=== PATIENT | male | born 1965 | race Caucasian/White ===

== ENCOUNTER 2020-10-31 08:15 | Outpatient (CLI) | payer OTHER, SELFPAY ==
--- NOTE | 2020-10-31 16:57 | WPDPFTINT ---
PFT Procedure Performed PFT Procedure Performed Plethysmography (Lung Vol) Diffusing Cap (DLCO) Flow Vol Loop Spirometry w/o Bronchodil PFT Interpretation This is a pulmonary function test with spirometry, plethysmography and diffusing capacity. The test was performed and results interpreted in accordance with the 2019 and 2005 ATS/ERS Task Force guidelines respectively using the Global Lung Function Initiative-2012 reference equations. Patient demonstrated good effort and cooperation. Reproducibility criteria were met. The quality of the spirometry maneuver was Grade B. Findings: Spirometry: There is decreased maximal expiratory airflow at all lung volumes with a concave expiratory flow tracing. The FVC is 4.23 L, 85% predicted. The FEV1 is 2.10 L, 54% predicted. The FEV1: FVC ratio is 50%. Plethysmography: The total lung capacity is 8.43 L, 118% predicted. The functional residual capacity is 5.27 L, 142% predicted. The residual volume is 4.20 L, 192% predicted. Diffusing capacity: The absolute diffusion capacity is 23.9, 80% predicted. The diffusing capacity corrected for alveolar volume is 3.59, 83% predicted. Impression: There is a moderately severe obstructive abnormality. The increase in residual volume is consistent with air trapping from an obstructive abnormality. Hyperinflation is present is demonstrated by the increase in functional residual capacity and is consistent with an obstructive abnormality. The diffusing capacity is normal. There are no prior studies for comparison
== END 2020-10-31 08:16 | disposition home or self-care (01) ==
PROVIDERS: PCP Family Medicine; Visit Provider Family Medicine
DX: R05 Cough (principal); R94.2 Abnormal results of pulmonary function studies
CPT/HCPCS: 94375; 94726; 94729

== ENCOUNTER 2022-05-25 13:11 | Outpatient (CLI) | payer OTHER, SELFPAY ==
--- NOTE | ~2022-05-25 | CT_ITS ---
EXAMINATION: CT lung screening DATE: 05/25/2022 13:55 INDICATION: Personal history nicotine dependence, current smoker with 60 pack year history TECHNIQUE: Computed tomography (CT) of the chest was performed without intravenous contrast. The dose -length product (DLP) was 447.50 mGy-cm. Automated exposure control and iterative reconstruction tech [employer] were employed. COMPARISON: None FINDINGS: There is mild emphysema. There is an approximately 2.7 x 1.5 cm (average 2.1 cm) nodule in the superior segment of the right lower lobe which tethers the major fissure. There is a 5 mm subpleu ral nodule of the left upper lobe. No pathologically enlarged thoracic lymph nodes are identified. Th e heart size is normal. No pleural effusion or pneumothorax. The liver is diffusely low in attenuatio n when compared with the spleen, consistent with hepatic steatosis. There is mild thoracic spondylosi s. IMPRESSION: 1. Lung-RADS category 4B: Very suspicious. Findings for which additional diagnostic testing and/or ti ssue sampling is recommended. Reviewed, dictated and finalized at location B. E STUD MANAGER IMPRESSION: 1. Lung-RADS category 4B: Very suspicious. Findings for which additional diagno stic testing and/or tissue sampling is recommended.
== END 2022-05-25 13:12 | disposition home or self-care (01) ==
PROVIDERS: PCP Family Medicine; Visit Provider Family Medicine
DX: Z87.891 Personal history of nicotine dependence (principal); R91.8 Other nonspecific abnormal finding of lung field
CPT/HCPCS: 71271

== ENCOUNTER 2022-06-30 00:12 | Outpatient (CLI) | payer OTHER, SELFPAY ==
--- NOTE | 2022-06-29 08:47 | PC.NURSE ---
Pre Radiology instructions Report to the outpatient [facility] at 0900 on date 06/30/22. Procedure Time: 1100. YOU MAY BE MONITORED AT HOSPITAL FOR UP TO 4 HOURS AFTER YOUR PROCEDURE. 1-2 visitors will be allowed to accompany the patient into the hospital. ?The visitor will be instructed to remain with patient at all times or may be asked to leave the building due to restrictions.? We will allow the visitor to come back to the postoperative area when patient is ready.? NO children visitors allowed at this time. You and your visitor will be asked to self-screen and do not enter if you have any COVID symptoms. A mask is OPTIONAL within the hospital. Patients are to have no food or drink 6 hours prior to procedure time Driving will be restricted after the procedure, you must have a person to drive you home. Labs will be drawn in preop area and once reviewed, you will be taken to radiology area for procedure. When the procedure is completed, you will be taken to outpatient where you will be monitored for several hours. You may have one visitor in this area. Other than holding anti-coagulants, patient may take other medication(s) as scheduled. Prior to your appointment date patients are instructed to hold anti-coagulants after discussing with ordering provider to stop. If unable to discontinue anti-coagulants please notify radiologist. ? No aspirin or warfarin (Coumadin) for 7 days prior to the procedure. ? No clopidogrel (Plavix), ticagrelor (Brilinta), prasugrel (Effient) or dabigatran (Pradaxa) for 5 days prior to the procedure. ? No rivaroxaban (Xarelto), apixaban (Eliquis), dipyridamole (Aggrenox or Persantine) or cilostazol (Pletal) for 2 days prior to the procedure. Medications to discontinue per physician: N/A Date to take last dose: N/A Please leave all valuables, including medications, at home the day of procedure. The hospital will not accept responsibility for valuables. Wear comfortable, loose fitting clothing.? Follow any additional instructions given to you from ordering provider. Telephone instructions given to SELIN GOTTLIEB and asked if any additional questions and then verbalized understanding. Patient advised to call scheduling provider office or registration scheduling [phone] if any additional questions.
[2022-06-29 09:02] VITALS: BMI 42.7
[2022-06-30] VITALS (10 sets, daily range): BP systolic 141–184; BP diastolic 77–104; PULSE 58–74; RESP 16–20; TEMP 37.2; O2SAT 97–100; BMI 43.0
--- NOTE | ~2022-06-30 | XR_ITS ---
EXAMINATION: XR chest 1V portable DATE: 06/30/2022 12:04 INDICATION: Right lung nodule status post percutaneous biopsy. TECHNIQUE: A single frontal view of the chest was obtained on 2 radiographs. COMPARISON: Chest single view at 11:11 AM FINDINGS: The chest demonstrates clear lungs without pneumonia, pleural effusion, or pneumothorax. Th e heart size is normal. IMPRESSION: 1. No acute cardiopulmonary disease. Reviewed, dictated and finalized at location A. DEVELOPER ANALYST
--- NOTE | ~2022-06-30 | XR_ITS ---
EXAMINATION: XR chest 1V DATE: 06/30/2022 11:14 INDICATION: Right lung nodule status post percutaneous biopsy. TECHNIQUE: A single frontal view of the chest was obtained. COMPARISON: Chest CT 05/25/2022 FINDINGS: There is no pneumonia, pleural effusion, or pneumothorax. The heart size is normal. IMPRESSION: 1. No acute cardiopulmonary disease. Reviewed, dictated and finalized at location A. HER OPERATOR
--- NOTE | ~2022-06-30 | CT_ITS ---
EXAMINATION: CT biopsy lung w/imaging DATE: 06/30/2022 11:13 INDICATION: Right lung nodule. TECHNIQUE: The procedure including the risks, benefits, and alternatives and possibility of chest tub e placement were discussed with the patient. Risks discussed included infection, hemorrhage, approxim ately 1/3 risk of pneumothorax, approximately 1/10 risk of pneumothorax severe enough to warrant ches t tube placement, and rarely . The patient understood the risks and agreed to proceed. The patie nt was placed prone. The skin overlying the right lung was prepped and draped in sterile fashion. A nesthetic was administered with 1% lidocaine subcutaneously. A 19 gauge outer needle was advanced un luz marina CT guidance to the lesion of interest. A 20 gauge core biopsy needle was then used to obtain 3 co re biopsy specimens. The needle was removed and the entry site was cleaned and dressed. The mA was ad justed according to patient size. Iterative reconstruction technique was employed. The dose-length pr oduct was 160.44 mGy-cm. There were no immediate complications. FINDINGS: CT images demonstrate the outer needle tip adjacent to a 2.2 cm nodule in right lower lobe. IMPRESSION: 1. CT-guided core needle biopsy of a nodule in right lung lower lobe. Reviewed, dictated and finalized at location A. CONSULTANT
--- NOTE | ~2022-06-30 | XR_ITS ---
XR chest 1V portable DATE: 06/30/2022 14:17 INDICATION: Post CT guided percutaneous needle biopsy of right lung nodule TECHNIQUE: Portable upright AP chest on 06/30/2022 at 1415 hours COMPARISON: 06/30/2022 portable AP chest at 1200 hours FINDINGS: Bilateral hyperinflation suggesting COPD. No iatrogenic pneumothorax is noted following ear lier CT-guided percutaneous needle biopsy of right lung nodule today. No pulmonary infiltrate or cons olidation or pleural effusion. Normal heart size. Osteopenia. IMPRESSION: No iatrogenic pneumothorax or other apparent complication following CT-guided percutaneou s needle biopsy of right lung nodule today Reviewed, dictated and finalized at location L. OR CLINICAL DATA COORDINATOR IMPRESSION: No iatrogenic pneumothorax or other apparent complication following CT-guided percutaneous needle biopsy of right lung nodule today
[2022-06-30 09:55] LABS: Prothrombin Time 12.7 Seconds (11.1-14.7)
[2022-06-30 10:06] LABS: Basophils Absolute Auto 0.1 K/mm3 (0.0-0.1); Basophils Percent Auto 0.8 % (0.2-1.2); Eosinophils Absolute Auto 0.3 K/mm3 (0-0.3); Eosinophils Percent Auto 3.2 % (0-4.4); Hematocrit 50.8 % (42.0-52.0); Immature Granulocyte Absolute 0.03 K/mm3 (0.00-0.031); Immature Granulocyte Percent A 0.4 % (0-0.5); Lymphocytes Absolute Auto 2.41 K/mm3 (0.9-3.2); Lymphocytes Percent Auto 28.9 % (18.3-44.2); Mean Corpuscular HGB Conc 33.5 g/dl (32-36); Mean Corpuscular Hemoglobin 35.3 pg (26-34); Mean Corpuscular Volume 105.4 fl (80-100); Mean Platelet Volume 10.2 fl (7.4-10.4); Monocytes Absolute Auto 0.6 K/mm3 (0.1-0.6); Monocytes Percent Auto 7.6 % (2.6-8.5); Neutrophils Absolute Auto 4.9 K/mm3 (1.3-6.7); Neutrophils Percent Auto 59.1 % (45.5-73.1); Platelet Count Result 197 k/mm3 (150-375); Red Blood Count 4.82 M/mm3 (4.6-6.20); Red Cell Distribution Width 13.2 % (11.5-14.5); White Blood Count 8.3 K/mm3 (4.5-10.0)
== END 2022-06-30 14:33 | disposition home or self-care (01) ==
PROVIDERS: Radiology Diagnostic Radiology; PCP Family Medicine; Referring Provider Internal Medicine Pulmonary Disease; Visit Provider Radiology Diagnostic Radiology
PROC: BB24ZZZ Computerized Tomography (CT Scan) of Bilateral Lungs (ICD-10-PCS; CPT 32408; principal; 2022-06-30 11:00)
DX: R91.1 Solitary pulmonary nodule (principal)
CPT/HCPCS: 32408; 36415; 71045; 85025; 85610; 88305; 88313

== ENCOUNTER 2022-09-04 07:54 | Outpatient (CLI) | payer OTHER, SELFPAY ==
--- NOTE | ~2022-09-04 | CT_ITS ---
CT Scan of the Chest without Contrast: Clinical Indication: Lung nodules, recent biopsy Technique: Contiguous sections were acquired throughout the chest without intravenous contrast. Dose reduction technique was used on this scan by utilizing automated exposure control and iterative recon struction technique. The dose-length product (DLP) was 563.99 mGy-cm. COMPARISON: 05/25/2022 Findings: There is no evidence of any significant mediastinal, hilar or axillary lymphadenopathy. The mediastin al soft tissues appear normal. There is no evidence of pleural or pericardial effusion. Stable somewhat irregular/spiculated nodule in the superior segment right lower lobe. Stable peripher al, pleural-based subcentimeter left upper lobe pulmonary nodule. Stable linear scarring at the lingu la. Images through the upper abdomen reveal diffuse fatty infiltration of the liver. Impression: Stable irregular/spiculated superior segment right lower lobe pulmonary nodule. Correlate with prior biopsy results. Stable subcentimeter left upper lobe pulmonary nodule. Reviewed, dictated and finalized at [facility]. Impression: Stable irregular/spiculated superior segment right lower lobe pulmonary nodule. Correlate with prior biopsy results. Stable subcentimeter left upper lobe pulmonary nodule.
== END 2022-09-04 07:55 | disposition home or self-care (01) ==
PROVIDERS: PCP Family Medicine; Visit Provider Internal Medicine Pulmonary Disease
DX: R91.1 Solitary pulmonary nodule (principal)
CPT/HCPCS: 71250

== ENCOUNTER 2024-04-27 09:02 | Outpatient (CLI) | payer OTHER, SELFPAY | END 2024-04-27 09:03 | disposition home or self-care (01) | LOC: ANHPFT 09:03 | PROVIDERS: PCP Family Medicine; Visit Provider Internal Medicine Pulmonary Disease | DX: J44.9 Chronic obstructive pulmonary disease, unspecified (principal); R91.8 Other nonspecific abnormal finding of lung field | CPT/HCPCS: 94060; 94726; 94729 ==

== ENCOUNTER 2024-08-05 13:00 | Outpatient (CLI) | payer OTHER, SELFPAY ==
--- NOTE | ~2024-08-05 | CT_ITS ---
CT Scan of the Chest without Contrast: Clinical Indication: Lung cancer screening, nicotine dependence Technique: Contiguous sections were acquired throughout the chest without intravenous contrast. Dose reduction technique was used on this scan by utilizing automated exposure control and iterative recon struction technique. The dose-length product (DLP) was 481.47 mGy-cm. COMPARISON: 09/04/2022 Findings: There is no evidence of any significant mediastinal, hilar or axillary lymphadenopathy. The mediastin al soft tissues appear normal. There is no evidence of pleural or pericardial effusion. Stable spiculated density in the right lower lobe, likely chronic postinflammatory scarring. Stable f ocal scarring at the lingula. Stable 5 mm subpleural nodule left upper lobe (axial image 52). Mild em physema. Images through the upper abdomen reveal diffuse hepatic steatosis. Impression: Lung RADS 2: Benign appearance. 12 month follow-up screening CT advised. Reviewed, dictated and finalized at [facility]. Impression: Lung RADS 2: Benign appearance. 12 month follow-up screening CT advised.
--- OUTSIDE RECORDS SUMMARY | 2024-08-05 13:05 | XMS_ITS | CONTINUITY OF CARE DOCUMENT ---
Author Name karolina turcios Address Unknown Organization [facility] Address [address] [place] [address] Phone [phone] Care Team Providers Care Silver Wrapper Name Role Phone Kurt JAMA, Anna Unavailable [phone] MICHAEL WHITNEY Unavailable [phone] HOPLENNIECHARBELIE Unavailable [phone] PROBLEMS Condition Status Date Provider Notes Family History of CVA or Stroke: completed - Sherry Osorio MD Family History of Hyperlipidemia: completed - Ho Osorio MD Family History of Hypertension: completed - Us lucian Osorio MD Cardiology examination completed 5 - Ho Osorio MD Obesity active Ho Osorio MD Increased blood pressure completed - Anna Hicks MD Shortness of breath- equivoc al routine stress, Echo - diastolic dysfn , RVSP 44 mm Hg 01/16 active Anna Hicks MD SLEEP APNEA completed - Anna Hicks MD Edema - b/l Venous insuffici ency 01/16 active Anna Hicks MD VENOUS INSUFFICIENCY active Ho Osorio MD Prediabetes active Ho Osorio MD Hyperlipidemia active Ho Osorio MD HTN essential active Ho Osorio MD COPD active Anna Hicks MD JEFF--on cpap active Anna Hicks MD Family hx of heart disease active Anna levy MD ENCOUNTERS Date Type Provider Location Encounter Diag nosis - In-person encounter Office Visit Anna Hicks MD [facility] Shortness of breath- equivocal routine stress, Echo - diastolic dysfn , RVSP 44 mm Hg 01/16Edema - b/l Venous insufficiency 01/16 - In-person encounter Office Visit Anna Hicks MD [facility] Increased blood pressureSLEEP APNEACOPDOSA--on cpapFamily hx of heart disease - In-person encounter Office Visit Ho Osorio MD [facility] HTN essential - In-person encounter Office Visit Ho Osorio MD [facility] - In-person encounter Office Visit Ho Osorio MD [facility] Family History of CVA or Stroke:Family History of Hyperlipidemia:Family History of Hypertension:Cardiology examinationVENOUS INSUFFICIENCYPrediabetesHyperlipidemia - In-person encounter Office Visit Ho Osorio MD [facility] ObesityShortness of breath- equivocal routine stress, Echo - diastolic dysfn , RVSP 44 mm Hg 01/16Edema - b/l Venous insufficiency 01/16 VITAL SIGNS Date Observation Value Provider Body Mass Index (Ratio) 44.21 kg/m2 Rocye Hicks MD blood pressure, diastolic 78 mm[Hg] Spenser San blood pressure, systolic 140 mm[Hg] She valerie San weight E&M 326 [lb_av] Bernadette San pulse rate 95 /min Bernadette San respiratory rate E&M 20 /min Bernadette San oxygen saturation, oximetry 95 % Bernadette San blood pressure, cuff size large Spenser San height E&M 72 [in_i] Bernadette San weight E&M 324 [lb_av] Cristal chang Body Mass Index (Ratio) 43.94 kg/m2 Royce Hicks MD blood pressure, diastolic 98 mm[Hg] Li [facility] blood pressure, systolic 148 mm[Hg] Chiquita [facility]Logic blood pressure, cuff size large Ja rr blood pressure, diastolic 98 mm[Hg] Ja rret blood pressure, systolic 148 mm[Hg] Jar ret pulse rate 83 /min [place] respiratory rate E&M 12 /min [place] oxygen saturation, oximetry 95 % [place] weight E&M 324 [lb_av] [place] y height E&M 72 [in_i] [place] y Body Mass Index (Ratio) 38.92 kg/m2 Jasmin Osorio MD blood pressure, diastolic 80 mm[Hg] Chelle Fishsandro Gonzalez blood pressure, systolic 132 mm[Hg] Melba Petrthierno Gonzalez oxygen saturation, oximetry 98 % Yaz Gonzalez respiratory rate E&M 20 /min Sue Gonzalez pulse rate 77 /min Yaz regalado weight E&M 287 [lb_av] Yaz Jigar [facility] height E&M 72 [in_i] Yaz Kimball [facility] Body Mass Index (Ratio) 40.95 kg/m2 Jasmin Osorio MD blood pressure, diastolic 95 mm[Hg] Cy tamara Cook blood pressure, systolic 155 mm[Hg] Caridad juliana Cook blood pressure, cuff size regular Cy tamara oCok pulse rate 92 /min Miguelina jerry respiratory rate E&M 18 /min Miguelina Cook oxygen saturation, oximetry 94 % Miguelina Cook weight E&M 302 [lb_av] Miguelina jerry height E&M 72 [in_i] Miguelina jerry Body Mass Index (Ratio) 36.89 kg/m2 Jasmin Osorio MD blood pressure, diastolic 70 mm[Hg] Chelle mar [facility] blood pressure, systolic 130 mm[Hg] Melba andrew [facility] oxygen saturation, oximetry 97 % Desiree O'Uli respiratory rate E&M 16 /min Desiree O'[facility]li pulse rate 82 /min Desiree O'[facility] weight E&M 272 [lb_av] Desiree O'Uli height E&M 72 [in_i] Desiree O'Uli Body Mass Index (Ratio) 41.09 kg/m2 Jasmin Osorio MD blood pressure, cuff size large Ke jazmine Evans blood pressure, diastolic 94 mm[Hg] Ke rryesenia Evans blood pressure, systolic 140 mm[Hg] Simran Evans oxygen saturation, oximetry 97 % Nicolette Evans respiratory rate E&M 22 /min Nicolette cullen pulse rate 86 /min Nicolette Saldaña lder weight E&M 303 [lb_av] Nicolette Saldaña lder height E&M 72 [in_i] Nicolette cruz ALLERGIES No Known Drug Allergies RESULTS Date Observation Value Provider Reference Range Interpretation Location prostate specific antigen (PSA) complex 0.1 ng/mL [facility] 0.0-3.6 thyroid stimulating hormone, serum 2.710 u[IU]/mL [facility] 0.450-4.500 bacteria, urine microscopy None seen [facility] None seen/Few cast type, urinalysis Hyaline casts [facility] N/A hyaline casts, urine Present [facility] None seen Abnormal epithelial cells, urine None seen [facility] 0 - 10 RBC, Urine 0-2 /hpf [facility] 0 - 2 WBC urine on microscopy 0-5 /hpf [facility] 0 - 5 urinalysis, microscopic examination See report [facility] nitrate, urine Negative [facility] Negative urobilinogen, urine, semiquantitative (dipstick) 0.2 [facility] 0.2-1.0 bilirubin, urine Negative [facility] Negative hemoglobin, urine, by dipstick Negative [facility] Negative ketones, urine, by test strip Negative [facility] Negative glucose, urine Negative [facility] Negative protein, urine, semiquantitative (dipstick) Negative [facility] Negative/Tra ce leukocyte esterase, urine, by dipstick Negative [facility] Negative appearance, urine Clear [facility] Clear urine color Yellow [facility] Yellow pH, urine, semiquantitative 5.5 [facility] 5.0-7.5 specific gravity, body fluid 1.024 [facility] 1.005-1.030 lipoprotein, beta, serum, point, quantitative, calculated 93 mg/dL [facility] 0-99 very low density lipoproteins 75 mg/dL [facility] 5-40 High HDL cholesterol, serum 35 mg/dL [facility] >39 Low triglyceride, serum, random 374 mg/dL [facility] 0-149 High cholesterol, serum 203 mg/dL [facility] 100-199 High alanine aminotransferase (SGPT), serum 31 1/L [facility] 0-44 aspartate aminotransferase (SGOT), serum 29 1/L [facility] 0-40 alkaline phosphatase, serum 103 1/L [facility] 39-117 bilirubin, serum, total 0.6 mg/dL [facility] 0.0-1.2 albumin/globulin ratio, serum 1.6 [facility] 1.2-2.2 globulin, serum 2.8 [facility] 1.5-4.5 albumin, serum 4.4 g/dL [facility] 3.5-5.5 protein, total, serum 7.2 g/dL [facility] 6.0-8.5 calcium, serum 9.3 mg/dL [facility] 8.7-10.2 carbon dioxide, venous blood 27 mmol/L [facility] 20-29 chloride, serum 101 mmol/L [facility] 96-106 potassium, serum 4.3 mmol/L [facility] 3.5-5.2 sodium, serum 146 mmol/L [facility] 134-144 High urea nitrogen/creatinine ratio, serum 15 [facility] 9-20 eGFR if 79 mL/min/{1.7 3_m2} [facility] >59 eGFR if not 68 mL/min/{1.7 3_m2} [facility] >59 creatinine, serum 1.21 mg/dL [facility] 0.76-1.27 urea nitrogen, blood 18 mg/dL [facility] 6-24 blood glucose, random 112 mg/dL [facility] 65-99 High basophil count, absolute 0.0 x10E3/uL [facility] 0.0-0.2 Eosinophil Absolute Count 0.3 X10E3/UL [facility] 0.0-0.4 monocyte count, blood, automated 0.7 X10E3/UL [facility] 0.1-0.9 lymphocyte count, blood, automated 3.3 X10E3/UL [facility] 0.7-3.1 High Absolute Neutrophils 6.6 X10E3/UL [facility] 1.4-7.0 basophils as percent of blood leukocytes 0 % [facility] Not Estab. eosinophils as percent of blood leukocytes 3 % [facility] Not Estab. monocytes as percent of blood leukocytes 6 % [facility] Not Estab. lymphocytes as percent of blood leukocytes 30 % [facility] Not Estab. neutrophils as percent of blood leukocytes 61 % [facility] Not Estab. platelet count 243 X10E3/UL [facility] 148-701 1227/03/ 26 red blood cell distribution width 13.0 % [facility] 12.3-15.4 mean corpuscular hemoglobin concentration, RBC 34.9 G/DL [facility] 31.5-35.7 mean corpuscular hemoglobin, RBC 33.9 pg [facility] 26.6-33.0 High mean corpuscular volume, RBC 97 fL [facility] 79-97 hematocrit, blood 49.6 % [facility] 37.5-51.0 hemoglobin, blood 17.3 g/dL [facility] 13.0-17.7 erythrocyte (RBC) count 5.11 X10E6/UL [facility] 4.14-5.80 leukocyte count, blood 10.9 X10E3/UL [facility] 3.4-10.8 High hemoglobin A1C, blood, as % of total hemoglobin 6.0 % [facility] 4.8-5.6 High HISTORY OF MEDICATION USE Medication Status Instructions Dates Provider Indications Com ments hydrochlorothiazide 25 mg tablet active Isaiah Ahmedzai metformin 500 mg tablet extended release 24 hr active Isaiah Ahmedzai albuterol sulfate 90 mcg/actuation HFA aerosol inhaler active Isaiah Ahmedzai ergocalciferol (vitamin D2) 1,250 mcg (50,000 unit) capsule active Isaiah Ahmedzai bumetanide 2 mg tablet active Ri anabella Min Stiolto Respimat 2.5-2.5 mcg/actuation mist active Isaiah Ahmedzai Mounjaro 2.5 mg/0.5 mL pen injector active Isaiah Min rosuvastatin 20 mg tablet active Isaiah Min VITAMIN B 12 TABLET completed take 1 tab daily Isaiah Min VITAMIN B 12 TABLET completed take 1 tab daily - Isaiah Min MULTIVITAMINS ORAL CAPSULE completed ONE TAB. DAILY - Isaiah Min ergocalciferol (vitamin D2) 1,250 mcg (50,000 unit) capsule completed one capsule by mouth weekly - Isaiah Min VITAMIN E TABLET completed once a day - Desiree Yoder EQGerardo GLUCOSAMINE CHONDROITIN TABLET completed take one pill a day - Isaiah Min SOCIAL HISTORY Date Observation Value Provider social history E&M S moking History: Destiny yarbrough currently smokes every day. Anna Hicks MD smoking history, tot al pack/day 1pkg cig a day Bernadette San cigarette use yes Bernadette San smoking status Current every day smoker S iliana San social history reviewed E&M revi ewed - no changes required Anna Hicks MD social history reviewed E&M revi ewed - no changes required Isaiah Min social history E&M S moking History: Destiny yarbrough currently smokes every day. Destiny yarbrough has been counseled to quit. Ho Osorio MD social history reviewed E&M revi ewed - no changes required Ho Osorio MD alcohol use, average drinks per day 2 /d Ho Osorio MD alcohol use yes Ho Osorio MD smoking/tobacco cess ation, patient education and counseling yes Yaz Gonzalez number of years as a smoker 30 a Yaz Gonzalez smoking history, tot al pack/day 2 ppd Yaz Gonzalez cigarette use yes Yaz wiley smoking status Current every day smoker Ashish Saba Gonzalez alcohol use, average drinks per day 2 /d Ho Osorio MD alcohol use yes Ho Osorio MD smoking/tobacco cess ation, patient education and counseling yes Ho Osorio MD smoking status Current every day smoker U jacquie Osorio MD social history E&M S moking History: P atient currently smokes every day. P atient has been counseled to quit. Ho Osorio MD social history reviewed E&M revi ewed - no changes required Ho Osorio MD number of years as a smoker 30 a Miguelina Cook smoking history, tot al pack/day 2 ppd Miguelina Cook cigarette use yes Miguelina bates number of grandchildren Ho Osorio MD U jacquie Osorio MD social history E&M S moking History: P atient currently smokes every day. P atient has been counseled to quit. Ho Osorio MD social history reviewed E&M revi ewed - no changes required Ho Osorio MD alcohol use, average drinks per day 2 /d Desiree Yoder smoking/tobacco cess ation, patient education and counseling yes Desiree Yoder alcohol use yes Desiree Yoder number of years as a smoker 30 a Desiree Yoder smoking history, tot al pack/day 2 ppd Desiree Yoder cigarette use yes Desiree Yoder smoking status Current every day smoker Ashish alana Yoder alcohol use, average drinks per day 2 /d Ho Osorio MD alcohol use yes Ho Osorio MD social history E&M S moking History: P atient currently smokes every day. P linnea has been counseled to quit. Ho Osorio MD social history reviewed E&M radha bills - no changes required Ho Osorio MD smoking/tobacco cess ation, patient education and counseling yes Ho Osorio MD number of years as a smoker 30 a Nicolette Evans smoking history, tot al pack/day 2 ppd Nicolette Cristina cigarette use yes Nicolette Andrzej varma smoking status Current every day smoker K darci Cristina FAMILY HISTORY Family Member Condition Mother Family History of Di abetes: Father Family History of Co ronary Artery Disease: Father Family History of Hy pertension: Father Family History of Hy perlipidemia: Father Family History of CV A or Stroke: INSURANCE PROVIDERS Payer name Policy type / Coverage type [place] red libertarian [employer] [place] [employer] [facility] [id number] ADVANCE DIRECTIVES Name Date DISCUSSED - NO DECISION MADE TREATMENT PLAN Date Name Performer [id number],Anna Glaser MD [id number],Anna Glaser MD [id number],Anna Glaser MD [id number],Anna Dozier MD [id number],Anna Santana MD [id number],Anna Glaser MD [id number],Anna Santana MD [id number],Anna Santana MD [id number],SIsaiah i [id number],Isaiah Glaser i [id number],SIsaiah i [id number],S, Isaiah Ahmedza i [id number],S, Isaiah Ahmedza i [id number],S, Isaiah Ahmedza i [id number],S, Isaiah Ahmedza i [id number],S, Isaiah Ahmedza i Cardiology Anna Hicks MD Cardiology Anna Hicks MD Cardiology Anna Hicks MD Cardiology Anna Hicks MD Cardiology Anna Hicks MD Cardiology Anna Hicks MD Cardiology Anna Hicks MD Cardiology Anna Hicks MD Cardiology Isaiah Ahmedzai Cardiology Isaiah Ahmedzai Cardiology Isaiah Ahmedzai Cardiology Isaiah Ahmedzai Cardiology Isaiah Ahmedzai Cardiology Isaiah Ahmedzai Cardiology Isaiah Ahmedzai Cardiology Isaiah Ahmedzai Cardiology:Improved with weight loss B P today: 132/80 P rior BP: 155/95 (11/06/2019) Labs Reviewed: C reat: 1.21 (07/19/2018) C hol: 203 (07/19/2018) HDL: 35 (07/19/2018) Ho Osorio MD Cardiology:Patient h as LE edema b/l secondary to venous reflux R worse than L. He has been wearing compression faithfully. Will not proceed with vein closure at this time as his veins as he has no wounds and is not in pain at this time. Swelling has improved with weight loss and compression. Advised him to continue to stay this course, will f/u in 6 months provided he doesn't have any further issues. Ho Osorio MD Cardiology follow up Ho still MD Cardiology follow up :Patient has LE edema b/l secondary to venous refllux R worse than L. I have advised him to obtain compression socks and we will repeat his standing venous dopppler. I will f/u with the patient in two months Ho Osorio MD Cardiology follow up Ho still MD Cardiology follow up :I have advised the patient to go back on Keto diet. Ho Osorio MD Cardiology Ho Osorio MD Cardiology:to receive CPAP this week Ho Osorio MD Cardiology:down 30lb s on keto diet. planning to continue with weight loss Ho Osorio MD Cardiology Ho Osorio MD Cardiology:will start compressio n socks Ho Osorio MD Cardiology New Patie nt :will check standing venous doppler. Ho Osorio MD Cardiology New Patient :weight l oss Ho Osorio MD Cardiology New Patient :will mon itor Ho Osorio MD Cardiology New Patie nt :Probably al least partly due to the weight w ill check an echo and pft's Ho Osorio MD Cardiology New Patie nt :has poor sleep and wakes up tired with poor memory with daytime sleepiness h as large neck Ho Osorio MD Date Name PROTHROMBIN TIME WIT H INR LIPID PANEL CBC (INCLUDES DIFF/P LT) BASIC METABOLIC PANE L W/EGFR CT, Coronary Calcium Score Venous Doppler Bilat eral LE - Reflux Complete Echo Stress Routine Venous Doppler Bilat eral LE - Reflux URINALYSIS, COMPLETE W/REFLEX TO CULTURE LIPID PANEL CBC (INCLUDES DIFF/P LT) COMPREHENSIVE METABO LIC PANEL, W/EGFR HEMOGLOBIN A1c PSA, TOTAL Vitamin D, 25-Hydrox y TSH, 3RD GENERATION W/REFLEX TO FT4 Sleep Study - split night CT, Coronary Calcium Score Venous Doppler Kendell sage LE - Reflux Complete Echo HISTORY OF PROCEDURES Procedure Date Procedure Name Provider Procedure Notes S tatus EKG Anna Hicks MD completed EKG Ho Osorio MD completed CT- Coronary CA score Ho Osorio MD completed EKG Ho Osorio MD completed
--- OUTSIDE RECORDS SUMMARY | 2024-08-05 13:05 | XMS_ITS | Data Portability ---
Author Organization [facility], Main Office Address [address] [place] [address] Assessment Encounter Date Assessment Date Assessment LastModified by Organization Details LastModified Time 06/14/2024 06/14/2024 Patient was not seen in office. [email or web address] Not available 06/14/2024 12:03:13 Plan of Treatment Reminders Order Date Submit Date Provider Last Modified By Organization Details Last Modified Time Details Appointments Follow Up 30 2024 08:30A Cheko Napoles NP Not available Not available Not available Lab lipid panel, serum 2024 025 [facility] (Lab), [address] [place], [address], 07/04/2024 14:11:31 hepatic function panel, serum 2024 025 [facility] (Lab), [address] [place], [address], 07/04/2024 14:11:30 vitamin B12 + folate, serum or blood 2024 025 [facility] (Lab), [address] [place], [address], 07/04/2024 15:11:11 vitamin D, 25-hydrox y, total, serum 2024 025 [facility] (Lab), [address] [place], [address], 07/04/2024 14:11:35 CBC w/ auto diff 2024 025 [facility] (Lab), [address] [facility] [place], [address], 07/04/2024 14:11:27 glycohemo globin, total, blood 2024 025 [facility] (Lab), [address] [place], [address], 07/04/2024 15:11:11 CMP, serum or plasma 2024 025 [facility] (Lab), [address] [place], [address], 07/04/2024 14:11:29 testoster one, free + total, serum 2024 025 [facility] (Lab), [address] [place], [address], 07/04/2024 14:11:33 vitamin D, 25-hydrox y, total, serum 2023 024 [facility] (Lab), [address] [place], [address], 01/21/2024 11:37:00 glycohemo globin, total, blood [email or web address] [place] [address] (Lab), [address] [place], [address], 01/27/2024 07:49:36 BMP, serum or plasma 2023 024 [facility] (Lab), [address] [place], [address], 01/21/2024 11:36:59 CBC 2023 024 [facility] (Lab), [address] [place], [address], 01/21/2024 11:36:58 vitamin B12 + folate, serum or blood 2023 024 [facility] (Lab), [address], [place], [address], 01/21/2024 11:36:59 Referral None recorded. Procedures None recorded. Surgeries None recorded. Imaging LDCT, chest, for lung cancer screening - Please call patient to schedule. 2024 025 [email or web address] [facility], [address] [facility], [place] [address], [place], [address], 06/08/2024 14:25:07 Medication Orders sertralin e 100 mg tablet 2024 025 [id number], [address], [place], [address], 06/08/2024 09:52:31 Ozempic 1 mg/dose (4 mg/3 mL) subcutane ous pen injector 2024 025 [facility]acy #[id number], [address], [place], [address], 06/08/2024 09:52:30 albuterol sulfate HFA 90 mcg/actua tion aerosol inhaler 2024 025 [id number], [address], [place], [address], 06/08/2024 09:52:28 prednison e 20 mg tablet 2024 025 [id number], [address], [place], [address], 06/08/2024 09:52:29 Ozempic 0.25 mg or 0.5 mg (2 mg/3 mL) subcutane ous pen injector 2023 024 [email or web address] [facility]/Pharmacy #[id number], [address] [place], [address], 06/08/2024 09:32:03 sertralin e 50 mg tablet 2023 024 FLIP [facility]/Pharmacy #[id number], [address], [place], [address], 02/18/2024 08:33:00 Zepbound 2.5 mg/0.5 mL subcutane ous pen injector 2023 024 [email or web address] [facility]/Pharmacy #[id number], [address], [place], [address], 02/18/2024 08:32:47 sertralin e 25 mg tablet 2023 024 [email or web address] [facility]/Pharmacy #[id number], [address], [place], [address], 06/08/2024 09:29:55 Patient TargetsNo targets recorded. Patient InstructionsNo instructions recorded. Reason for Referral None Reported. Results Created Date Observation Date Name Description Value Unit Range Abnormal Flag Note LastModifiedBy Organization Detail LastModifiedTime 01/20/2001/21/2024 CBC, PLATE LET, NO DIFFE RENTI AL WBC 7.7 x10e3 /uL 3.4-10 .8 normal Not Available [facility] ([facility]) [address] [place], [address], 01/21/2024 11:36:58 01/20/2001/21/2024 CBC, PLATE LET, NO DIFFE RENTI AL RBC 4.76 x10e6 /uL 4.14-5 .80 normal Not Available [facility] ([facility]) [address] [place], [address], 01/21/2024 11:36:58 01/20/2001/21/2024 CBC, PLATE LET, NO DIFFE RENTI AL hemoglobin 16.5 g/dL 13.0-1 7.7 normal Not Available [facility] ([facility]) [address] [facility], [place], [address], 01/21/2024 11:36:58 01/20/2001/21/2024 CBC, PLATE LET, NO DIFFE RENTI AL hematocrit 48.2 % 37.5-5 1.0 normal Not Available [facility] ([facility]) [address] [place], [address], 01/21/2024 11:36:58 01/20/2001/21/2024 CBC, PLATE LET, NO DIFFE RENTI AL MCV 101 fL 79-97 above high normal Not Available [facility] ([facility]) [address] [facility], [place], [address], 01/21/2024 11:36:58 01/20/2001/21/2024 CBC, PLATE LET, NO DIFFE RENTI AL MCH 34.7 pg 26.6-3 3.0 above high normal Not Available [facility] ([facility]) [address] [facility], [place], [address], 01/21/2024 11:36:58 01/20/2001/21/2024 CBC, PLATE LET, NO DIFFE RENTI AL MCHC 34.2 g/dL 31.5-3 5.7 normal Not Available [facility] ([facility]) [address] [place], [address], 01/21/2024 11:36:58 01/20/2001/21/2024 CBC, PLATE LET, NO DIFFE RENTI AL RDW 12.0 % 11.6-1 5.4 Not Available [facility] ([facility]) [address] [place], [address], 01/21/2024 11:36:58 01/20/2001/21/2024 CBC, PLATE LET, NO DIFFE RENTI AL platelets 149 x10e3 /uL 150-45 0 below low normal Not Available [facility] ([facility]) [address] [facility], [place], [address], 01/21/2024 11:36:58 01/20/20 24 01/21/2024 CBC, PLATE LET, NO DIFFE RENTI AL NRBC WRAPPER LEAF INSPECTOR Not Available [facility] ([facility]) [address] [facility], [place], [address], 01/21/2024 11:36:58 01/20/20 24 01/21/2024 BASIC METAB OLIC PANEL (8) glucose 148 mg/dL 70-99 above high normal Not Available [facility] ([facility]) [address] [facility], [place], [address], 01/21/2024 11:36:59 01/20/20 24 01/21/2024 BASIC METAB OLIC PANEL (8) BUN 15 mg/dL 6-24 normal Not Available [facility] ([facility]) [address] [facility], [place], [address], 01/21/2024 11:36:59 01/20/20 24 01/21/2024 BASIC METAB OLIC PANEL (8) creatinine 1.04 mg/dL 0.76-1 .27 normal Not Available [facility] ([facility]) [address] [facility], [place], [address], 01/21/2024 11:36:59 01/20/20 24 01/21/2024 BASIC METAB OLIC PANEL (8) eGFR 83 mL/mi n/1.7 3 >59 normal Not Available [facility] ([facility]) [address] [facility], [place], [address], 01/21/2024 11:36:59 01/20/20 24 01/21/2024 BASIC METAB OLIC PANEL (8) BUN/creatini ne ratio 14 9-20 normal Not Available [facility] ([facility]) [address] [place], [address], 01/21/2024 11:36:59 01/20/20 24 01/21/2024 BASIC METAB OLIC PANEL (8) sodium 141 mmol/ L 134-14 4 normal Not Available [facility] ([facility]) [address] [facility] [place], [address], 01/21/2024 11:36:59 01/20/20 24 01/21/2024 BASIC METAB OLIC PANEL (8) potassium 4.9 mmol/ L 3.5-5. 2 normal Not Available [facility] ([facility]) [address] [facility] [place], [address], 01/21/2024 11:36:59 01/20/20 24 01/21/2024 BASIC METAB OLIC PANEL (8) chloride 104 mmol/ L 96-106 normal Not Available [facility] ([facility]) [address] [facility] [place], [address], 01/21/2024 11:36:59 01/20/20 24 01/21/2024 BASIC METAB OLIC PANEL (8) carbon dioxide, total 24 mmol/ L 20-29 normal Not Available [facility] ([facility]) [address] [facility] [place], [address], 01/21/2024 11:36:59 01/20/20 24 01/21/2024 BASIC METAB OLIC PANEL (8) calcium 9.1 mg/dL 8.7-10 .2 normal Not Available [facility] ([facility]) [address] [place], [address], 01/21/2024 11:36:59 01/20/20 24 01/21/2024 VITAM IN B12 AND FOLAT E vitamin B12 390 pg/mL 232-12 45 normal Not Available [facility] ([facility]) [address] [facility] [place], [address], 01/21/2024 11:36:59 01/20/20 24 01/21/2024 VITAM IN B12 AND FOLAT E folate (folic acid), serum 8.6 NG/mL >3.0 normal A serum folat e rosalio ntrat ion of less than 3.1 ng/mL is consi dered to repre sent clini [place] defic iency . Not Available [facility] ([facility]) [address] [facility], [place], [address], 01/21/2024 11:36:59 01/20/20 24 01/21/2024 HEMOG LOBIN A1C hemoglobin A1C 7.0 % 4.8-5. 6 above high normal Predi abete s: 5.7 - 6.4 Diabe spike: >6.4 Glyce suzanne contr ol for adult s with diabe spike: <7.0 Not Available [facility] ([facility]) [address] [facility], [place], [address], 01/21/2024 11:37:00 01/20/20 24 01/21/2024 VITAM IN D, 25-HY DROXY vitamin D, 25-hydroxy 28.3 NG/mL 30.0-1 00.0 below low normal Vitam in D defic iency has been defin ed by the Insti tute of Medic ine and an Endoc rine Socie ty pract ice guide line as a level of serum 25-OH vitam in D less than 20 ng/mL (1,2) . The Endoc rine Socie ty went on to [facility] er defin e vitam in D insuf ficie ncy as a level betwe en 21 and 29 ng/mL (2). 1. IOM (Inst itute of Medic ine). 2009. Dieta ry refer ence intshakeel es for calci um and D. Brenda gautam DC: The [facility] Press . 2. Bay batista MF, Vonnie ey [place], Roxy off-F errar i HURTADO, et al. Evalu ation , treat ment, and preve ntion of vitam in D defic iency : an Endoc rine Socie ty clini [place] pract ice guide line. JCEM. 2010; 96(7) :1911 -30. Not Available [facility] ([facility]) [address] [facility], [place], [address], 01/21/2024 11:37:00 06/28/19 25 06/28/2024 CBC WITH DIFFE RENTI AL/PL ATELE T WBC 8.2 x10e3 /uL 3.4-10 .8 normal Not Available [facility] ([facility]) [address] [place], [address], 07/04/2024 14:11:27 06/28/19 25 06/28/2024 CBC WITH DIFFE RENTI AL/PL ATELE T RBC 4.92 x10e6 /uL 4.14-5 .80 normal Not Available [facility] ([facility]) [address] [place], [address], 07/04/2024 14:11:27 06/28/19 25 06/28/2024 CBC WITH DIFFE RENTI AL/PL ATELE T hemoglobin 17.5 g/dL 13.0-1 7.7 normal Not Available [facility] ([facility]) [address] [place], [address], 07/04/2024 14:11:27 06/28/19 25 06/28/2024 CBC WITH DIFFE RENTI AL/PL ATELE T hematocrit 49.5 % 37.5-5 1.0 normal Not Available [facility] ([facility]) [address] [place], [address], 07/04/2024 14:11:27 06/28/19 25 06/28/2024 CBC WITH DIFFE RENTI AL/PL ATELE T MCV 101 fL 79-97 above high normal Not Available [facility] ([facility]) [address] [place], [address], 07/04/2024 14:11:27 06/28/19 25 06/28/2024 CBC WITH DIFFE RENTI AL/PL ATELE T MCH 35.6 pg 26.6-3 3.0 above high normal Not Available [facility] ([facility]) [address] [place], [address], 07/04/2024 14:11:27 06/28/19 25 06/28/2024 CBC WITH DIFFE RENTI AL/PL ATELE T MCHC 35.4 g/dL 31.5-3 5.7 normal Not Available [facility] ([facility]) [address] [place], [address], 07/04/2024 14:11:27 06/28/19 25 06/28/2024 CBC WITH DIFFE RENTI AL/PL ATELE T RDW 11.9 % 11.6-1 5.4 Not Available [facility] ([facility]) [address] [facility], [place], [address], 07/04/2024 14:11:27 06/28/19 25 06/28/2024 CBC WITH DIFFE RENTI AL/PL ATELE T platelets 206 x10e3 /uL 150-45 0 normal Not Available [facility] ([facility]) [address] [facility], [place], [address], 07/04/2024 14:11:27 06/28/19 25 06/28/2024 CBC WITH DIFFE RENTI AL/PL ATELE T neutrophils 52 % not estab. normal Not Available [facility] ([facility]) [address] [facility], [place], [address], 07/04/2024 14:11:27 06/28/19 25 06/28/2024 CBC WITH DIFFE RENTI AL/PL ATELE T lymphs 38 % not estab. normal Not Available [facility] ([facility]) [address] [place], [address], 07/04/2024 14:11:27 06/28/19 25 06/28/2024 CBC WITH DIFFE RENTI AL/PL ATELE T monocytes 7 % not estab. normal Not Available [facility] ([facility]) [address] [place], [address], 07/04/2024 14:11:27 06/28/19 25 06/28/2024 CBC WITH DIFFE RENTI AL/PL ATELE T eos 2 % not estab. normal Not Available [facility] ([facility]) [address] [place], [address], 07/04/2024 14:11:27 06/28/19 25 06/28/2024 CBC WITH DIFFE RENTI AL/PL ATELE T basos 1 % not estab. normal Not Available [facility] ([facility]) [address] [place], [address], 07/04/2024 14:11:27 06/28/19 25 06/28/2024 CBC WITH DIFFE RENTI AL/PL ATELE T immature cells WRAPPER LEAF INSPECTOR Not Available [facility] ([facility]) [address] [place], [address], 07/04/2024 14:11:27 06/28/19 25 06/28/2024 CBC WITH DIFFE RENTI AL/PL ATELE T neutrophils (absolute) 4.3 x10e3 /uL 1.4-7. 0 normal Not Available [facility] ([facility]) [address] [place], [address], 07/04/2024 14:11:27 06/28/19 25 06/28/2024 CBC WITH DIFFE RENTI AL/PL ATELE T lymphs (absolute) 3.2 x10e3 /uL 0.7-3. 1 above high normal Not Available [facility] ([facility]) [address] [place], [address], 07/04/2024 14:11:27 06/28/19 25 06/28/2024 CBC WITH DIFFE RENTI AL/PL ATELE T monocytes(ab solute) 0.5 x10e3 /uL 0.1-0. 9 normal Not Available [facility] ([facility]) [address] [place], [address], 07/04/2024 14:11:27 06/28/19 25 06/28/2024 CBC WITH DIFFE RENTI AL/PL ATELE T eos (absolute) 0.1 x10e3 /uL 0.0-0. 4 normal Not Available [facility] ([facility]) [address] [facility], [place], [address], 07/04/2024 14:11:27 06/28/19 25 06/28/2024 CBC WITH DIFFE RENTI AL/PL ATELE T baso (absolute) 0.1 x10e3 /uL 0.0-0. 2 normal Not Available [facility] ([facility]) [address] [facility], [place], [address], 07/04/2024 14:11:27 06/28/19 25 06/28/2024 CBC WITH DIFFE RENTI AL/PL ATELE T immature granulocytes 0 % not estab. Not Available [facility] ([facility]) [address] [facility], [place], [address], 07/04/2024 14:11:27 06/28/19 25 06/28/2024 CBC WITH DIFFE RENTI AL/PL ATELE T immature grans (abs) 0.0 x10e3 /uL 0.0-0. 1 Not Available [facility] ([facility]) [address] [facility], [place], [address], 07/04/2024 14:11:27 06/28/19 25 06/28/2024 CBC WITH DIFFE RENTI AL/PL ATELE T NRBC WRAPPER LEAF INSPECTOR Not Available [facility] ([facility]) [address] [facility], [place], [address], 07/04/2024 14:11:27 06/28/19 25 06/28/2024 CBC WITH DIFFE RENTI AL/PL ATELE T hematology comments: WRAPPER LEAF INSPECTOR Not Available [facility] ([facility]) [address] [facility], [place], [address], 07/04/2024 14:11:27 06/28/19 25 06/28/2024 COMP. METAB OLIC PANEL (14) glucose 113 mg/dL 70-99 above high normal Not Available [facility] ([facility]) [address] [facility], [place], [address], 07/04/2024 14:11:29 06/28/19 25 06/28/2024 COMP. METAB OLIC PANEL (14) BUN 13 mg/dL 6-24 normal Not Available [facility] ([facility]) [address] [facility], [place], [address], 07/04/2024 14:11:29 06/28/19 25 06/28/2024 COMP. METAB OLIC PANEL (14) creatinine 0.96 mg/dL 0.76-1 .27 normal Not Available [facility] ([facility]) [address] [place], [address], 07/04/2024 14:11:29 06/28/19 25 06/28/2024 COMP. METAB OLIC PANEL (14) eGFR 91 mL/mi n/1.7 3 >59 normal Not Available [facility] ([facility]) [address] [place], [address], 07/04/2024 14:11:29 06/28/19 25 06/28/2024 COMP. METAB OLIC PANEL (14) BUN/creatini ne ratio 14 9-20 normal Not Available [facility] ([facility]) [address] [place], [address], 07/04/2024 14:11:29 06/28/19 25 06/28/2024 COMP. METAB OLIC PANEL (14) sodium 138 mmol/ L 134-14 4 normal Not Available [facility] ([facility]) [address] [place], [address], 07/04/2024 14:11:29 06/28/19 25 06/28/2024 COMP. METAB OLIC PANEL (14) potassium 4.7 mmol/ L 3.5-5. 2 normal Not Available [facility] ([facility]) [address] [facility] [place], [address], 07/04/2024 14:11:29 06/28/19 25 06/28/2024 COMP. METAB OLIC PANEL (14) chloride 103 mmol/ L 96-106 normal Not Available [facility] ([facility]) [address] [facility] [place], [address], 07/04/2024 14:11:29 06/28/19 25 06/28/2024 COMP. METAB OLIC PANEL (14) carbon dioxide, total 23 mmol/ L 20-29 normal Not Available [facility] ([facility]) [address] [facility] [place], [address], 07/04/2024 14:11:29 06/28/19 25 06/28/2024 COMP. METAB OLIC PANEL (14) calcium 8.6 mg/dL 8.7-10 .2 below low normal Not Available [facility] ([facility]) [address] [facility] [place], [address], 07/04/2024 14:11:29 06/28/19 25 06/28/2024 COMP. METAB OLIC PANEL (14) protein, total 6.8 g/dL 6.0-8. 5 normal Not Available [facility] ([facility]) [address] [facility] [place], [address], 07/04/2024 14:11:29 06/28/19 25 06/28/2024 COMP. METAB OLIC PANEL (14) albumin 4.2 g/dL 3.8-4. 9 normal Not Available [facility] ([facility]) [address] [facility] [place], [address], 07/04/2024 14:11:29 06/28/19 25 06/28/2024 COMP. METAB OLIC PANEL (14) globulin, total 2.6 g/dL 1.5-4. 5 Not Available [facility] ([facility]) [address] [facility] [place], [address], 07/04/2024 14:11:29 06/28/19 25 06/28/2024 COMP. METAB OLIC PANEL (14) bilirubin, total 0.4 mg/dL 0.0-1. 2 normal Not Available [facility] ([facility]) [address] [facility] [place], [address], 07/04/2024 14:11:29 06/28/19 25 06/28/2024 COMP. METAB OLIC PANEL (14) alkaline phosphatase 116 IU/L 44-121 normal Not Available [facility] ([facility]) [address] [facility], [place], [address], 07/04/2024 14:11:29 06/28/19 25 06/28/2024 COMP. METAB OLIC PANEL (14) AST (SGOT) 40 IU/L 0-40 normal Not Available [facility] ([facility]) [address] [facility] [place], [address], 07/04/2024 14:11:29 06/28/19 25 06/28/2024 COMP. METAB OLIC PANEL (14) ALT (SGPT) 49 IU/L 0-44 above high normal Not Available [facility] ([facility]) [address] [facility] [place], [address], 07/04/2024 14:11:29 06/28/19 25 06/28/2024 HEPAT IC FUNCT ION PANEL (7) bilirubin, direct 0.18 mg/dL 0.00-0 .40 normal Not Available [facility] ([facility]) [address] [facility] [place], [address], 07/04/2024 14:11:30 06/28/19 25 06/28/2024 LIPID PANEL cholesterol, total 180 mg/dL 100-19 9 normal Not Available [facility] ([facility]) [address] [facility] [place], [address], 07/04/2024 14:11:31 06/28/19 25 06/28/2024 LIPID PANEL triglyceride s 204 mg/dL 0-149 above high normal Not Available [facility] ([facility]) [address] [facility] [place], [address], 07/04/2024 14:11:31 06/28/19 25 06/28/2024 LIPID PANEL HDL cholesterol 33 mg/dL >39 below low normal Not Available [facility] ([facility]) [address] [facility] [place], [address], 07/04/2024 14:11:31 06/28/19 25 06/28/2024 LIPID PANEL VLDL cholesterol [place] 36 mg/dL 5-40 Not Available [facility] ([facility]) [address] [facility] [place], [address], 07/04/2024 14:11:31 06/28/19 25 06/28/2024 LIPID PANEL LDL chol calc ([facility]) 111 mg/dL 0-99 above high normal Not Available [facility] ([facility]) [address] [facility] [place], [address], 07/04/2024 14:11:31 06/28/19 25 06/28/2024 LIPID PANEL LDL calc comment: WRAPPER LEAF INSPECTOR Not Available [facility] ([facility]) [address] [facility] [place], [address], 07/04/2024 14:11:31 06/28/19 25 06/28/2024 VITAM IN B12 AND FOLAT E vitamin B12 484 pg/mL 232-12 45 normal Not Available [facility] ([facility]) [address] [facility] [place], [address], 07/04/2024 14:11:33 06/28/19 25 06/28/2024 VITAM IN B12 AND FOLAT E folate (folic acid), serum 8.3 NG/mL >3.0 normal A serum folat e rosalio ntrat ion of less than 3.1 ng/mL is consi dered to repre sent clini [place] defic iency . Not Available [facility] ([facility]) [address] [facility], [place], [address], 07/04/2024 14:11:33 06/28/19 25 07/01/2024 TESTO STERO NE, FREE+ TOTAL LC/MS testosterone , total, lc/MS 182.4 NG/dL 264.0- 916.0 below low normal This [facility] LC/MS -MS metho d is curre ntly certi fied by the [facility] Hormo ne Stand ardiz ation Progr am (HoSt ). Adult male refer ence inter vidal is based on a popul ation of healt hy nonob [place] males (BMI <30) betwe en 19 and 39 years old. Yany suarez, et.al . JCEM 2017, 102;1 161-1 173. PMID: 54114 103. Not Available [facility] ([facility]) [address] [facility], [place], [address], 07/04/2024 14:11:33 06/28/19 25 07/04/2024 TESTO STERO NE, FREE+ TOTAL LC/MS free testosterone (direct) 0.9 pg/mL 7.2-24 .0 below low normal Not Available [facility] ([facility]) [address] [facility], [place], [address], 07/04/2024 14:11:33 06/28/19 25 06/28/2024 HEMOG LOBIN A1C hemoglobin A1C 6.6 % 4.8-5. 6 above high normal Predi abete s: 5.7 - 6.4 Diabe spike: >6.4 Glyce suzanne contr ol for adult s with diabe spike: <7.0 Not Available [facility] ([facility]) [address] [facility], [place], [address], 07/04/2024 14:11:34 06/28/19 25 06/28/2024 VITAM IN D, 25-HY DROXY vitamin D, 25-hydroxy 25.7 NG/mL 30.0-1 00.0 below low normal Vitam in D defic iency has been defin ed by the Insti tute of Medic ine and an Endoc rine Socie ty pract ice guide line as a level of serum 25-OH vitam in D less than 20 ng/mL (1,2) . The Endoc rine Socie ty went on to furth er defin e vitam in D insuf ficie ncy as a level betwe en 21 and 29 ng/mL (2). 1. IOM (Inst itute of Medic ine). 2010. Alvaro ry refer neoe juan f es for calci um and D. Brenda gautam [place]: [facility] . 2. Bay batista [place], Vonnie doss [place], Roxy off-F errar i [place], et al. Evalu ation , treat ment, and preve ntion of vitam in D defic iency : an Endoc rine Socie ty clini [place] pract ice guide line. JCEM. 2010; 96(7) :1911 -30. Not Available [facility] ([facility]) [address] [facility], [place], [address], 07/04/2024 14:11:35 05/29/19 25 04/27/2024 compl ete PFT w/ post [facility] hodil ator jorge luis metry * No observ ation record ed. [facility] (Pulmonary) [address], [place], [address], 05/29/2024 15:13:20 Result Notes None recorded. Problems Name Problem SNOMED Code Status Onset Date Resolution Date Notes Provider Name and Address Organization Details Recorded Time Mixed anxiety and depressive disorder 128596102 Active Not Available [facility] 3 22:19:11 Vitamin D deficiency 74201557 Active Not Available [facility] 3 22:19:11 History of polyp of colon 249822389 Active Not Available [facility] 3 22:19:11 Hyperlipidemi a 04851266 Active Not Available [facility] 3 22:19:11 Essential hypertension 84365599 Active Not Available [facility] 3 22:19:11 Sleep apnea 34727746 Active wears cpap Not Available [facility] 3 22:19:11 Solitary nodule of lung 986529162 Active 2022 Not Available [facility] 3 22:19:11 Mild chronic obstructive pulmonary disease 075389891 Active 2022 Not Available [facility] 3 22:19:11 Smoker 17263286 Active 2022 Not Available [facility] 3 22:19:11 Prediabetes 151839484 Active 2022 Not Available [facility] 3 22:19:11 Nodule of lung 713502261 Active 2022 Not Available [facility] 3 22:19:11 Nicotine dependence 22298304 Active 2022 Not Available [facility] 3 22:19:11 Obesity 635241856 Active 2022 Not Available [facility] 3 22:19:11 Type 2 diabetes mellitus without complication 574811543 Active 2022 Not Available [facility] 3 22:19:11 Testosterone level below reference range 495952210 Active 2022 ALMA Riggs, [place] [facility] [employer] 3 10:37:30 Vitamin B12 deficiency (non anemic) 96401688 Active 2022 ROSA Chacon [address], [address], [place], [address] , [facility] [employer] [facility] 3 10:53:13 Cobalamin deficiency 180864630 Active 2022 ALMA Riggs, [facility] [employer] [employer] [facility] 3 10:59:31 Obstructive sleep apnea syndrome 82672131 Active 2023 Guanako Anderson MD [address], [address], [place], [address] , [place] [facility] 4 10:21:00 Moderate cigarette smoker (10-19 cigs/day) 371244311 Active 2024 CARMEN Whitten-Nae [address] [facility], [facility] [address], [place], [address] , [place] [facility] 5 11:23:31 Notes:Medical History: Depre ssion/Anxiety Eosinophils 140/uL IgE 63 IU/mL Hypogammaglobulinemia (IgG2) AAT [facility] 176 mg% Nicotine use Mild ACO [facility] superior segment nodule Erythrocytosis Obesity with [facility] on CPAP c/o [facility] Hypertension Mixed hyperlipidemia Prediabetes Transaminitis Hepatic steatosis Vit D insufficiency Thoracic spondylosis Procedure History: Left foot fracture pins placement 2010 Colonoscopy with polypectomy 2018 Occupational History: [employer] Problem Notes None recorded. Procedures Surgical History Date Name Laterality Status Provider Name and Address Organization Details Recorded Time colonoscopy completed Not Available [facility] 06/24/2022 05:53:09 Orthopedic Procedure completed Not Available [facility] 06/24/2022 05:53:09 Imaging Results Imaging Date Name Status LastModified by Organization Details LastModified Time 04/27/2024 complete PFT w/ post bronchodilator spirometry* completed [facility] (Pulmonary) [address], [place], [address], 05/29/2024 15:13:20 Procedure Notes None recorded. Medical Equipment None Reported. Allergies No known drug allergies Medications Name Sig Start Date Stop Date Status Note LastModified by Organization Details LastModified Time neomycin- polymyxin -hydrocor t 3.5 mg/mL-10, 000 unit/mL-1 % ear solution 04/26 completed Not Available Not Available Not Available bumetanid e 2 mg tablet TAKE 1 TABLET BY MOUTH EVERY DAY active Not Available Not Available No t Available ibuprofen 800 mg tablet Take 1 tablet 3 times a day by oral route as needed for 30 days. 11/12 completed Not Available Not Available Not Available prednison e 20 mg tablet TAKE 2 TABLETS BY MOUTH EVERY DAY active Not Available Not Available No t Available sertralin e 100 mg tablet Take 1 tablet every day by oral route. 2024 active Not Available Not Available Not Avai lable simvastat in 10 mg tablet Take 1 tablet every day by oral route for 30 days. 11/06 completed Not Available Not Available Not Available Tamiflu 75 mg capsule 11/06 completed Not Available Not Available Not Available tramadol 50 mg tablet 06/03 completed Not Available Not Available Not Available amoxicill in 875 mg tablet TAKE 1 TABLET BY MOUTH EVERY 12 HOURS UNTIL GONE active Not Available Not Available No t Available ciproflox acin 0.3 % eye drops INSTILL 1 DROP INTO THE RIGHT EYE 4 TIMES DAILY X7 DAYS 10/05 completed Not Available Not Available Not Available cephalexi n 500 mg capsule Take 1 capsule twice a day by oral route for 7 days. active Not Available Not Available No t Available cyanocoba ruth (vit B-12) 1,000 mcg/mL injection solution Inject 1 mL every month by subcutan eous route. 2023 active pt jeana well Not Available Not Available Not Available sertralin e 25 mg tablet TAKE 1 TABLET BY MOUTH EVERY DAY FOR 30 DAYS 06/08 completed Not Available Not Available Not Available bumetanid e 1 mg tablet TAKE 1 TO 2 TABLETS BY MOUTH EVERY MORNING NEEDED FOR SWELLING 11/27 completed Not Available Not Available Not Available hydrochlo rothiazid e 25 mg tablet TAKE 1 TABLET BY MOUTH EVERY MORNING 07/07 completed Not Available Not Available Not Available ergocalci ferol (vitamin D2) 1,250 mcg (50,000 unit) capsule TAKE 1 CAPSULE EVERY WEEK BY ORAL ROUTE. active Not Available Not Available No t Available testoster one cypionate 200 mg/mL intramusc ular oil INJECT 0.5ML INTO THE MUSCLE ONCE WEEKLY *SINGLE USE VIALS* 06/08 completed Not Available Not Available Not Available albuterol sulfate HFA 90 mcg/actua tion aerosol inhaler INHALE 1-2 PUFFs BY MOUTH EVERY 4 HOURS NEEDED 2024 active Not Available Not Available Not Avai lable BD Luer-Annabella Syringe 3 mL 18 x 1 1/2 USE TO INJECT ONCE WEEKLY active Not Available Not Available No t Available metformin ER 500 mg tablet,ex tended release 24 hr Take 2 tablets every day by oral route at dinner. 06/08 completed Not Available Not Available Not Available sertralin e 50 mg tablet TAKE 1 TABLET BY MOUTH EVERY DAY active Not Available Not Available No t Available escitalop saritha 10 mg tablet TK 1 T PO ONCE D 06/15 completed Not Available Not Available Not Available Suboxone 2 mg-0.5 mg sublingua l tablet active Not Available Not Available Not Available rosuvasta tin 20 mg tablet TAKE 1 TABLET BY MOUTH EVERY DAY 06/08 completed Not Available Not Available Not Available Crestor 5 mg tablet Take 1 tablet every day by oral route. 06/15 completed change to simvasta tin Not Available Not Available Not Available BD Precision Coral 25 gauge x 1 needle USE TO INJECT ONCE WEEKLY active Not Available Not Available No t Available varenicli ne tartrate 1 mg tablet TAKE 1 TABLET BY MOUTH TWICE DAILY. START AFTER FINISHED WITH 0.5 MG STRENGTH 11/27 completed Not Available Not Available Not Available varenicli ne tartrate 0.5 mg tablet 11/27 completed Not Available Not Available Not Available varenicli ne tartrate 0.5 mg (11)-1 mg (42) tablets in a dose pack USE DIRECTED 11/27 completed Not Available Not Available Not Available metformin ER 500 mg 24 hr tablet,ex tended release (gastric retention ) Take 1 tablet every day by oral route. 09/17 completed Not Available Not Available Not Available cholecalc iferol (vitamin D3) 50 mcg (2,000 unit) capsule TAKE 1 CAPSULE BY MOUTH EVERY DAY FOR 90 DAYS active Not Available Not Available No t Available Vitamin D3 125 mcg (5,000 unit) tablet Take 1 tablet every day by oral route. 06/15 completed Not Available Not Available Not Available Suboxone 2 mg-0.5 mg sublingua l film active Not Available Not Available Not Available buprenorp krissy 8 mg-naloxo ne 2 mg sublingua l film PLACE 1/2 FILM UNDER THE TONGUE TWICE DAILY 06/03 completed Not Available Not Available Not Available Linzess 145 mcg capsule TK 1 C PO QAM 06/15 completed Not Available Not Available Not Available Linzess 290 mcg capsule Take 1 capsule every day by oral route. 11/27 completed Not Available Not Available Not Available Fetzima 40 mg capsule,e xtended release Take 1 capsule every day by oral route. 11/14 completed replaced by lexapro Not Available Not Available Not Available Stiolto Respimat 2.5 mcg-2.5 mcg/actua tion solution for inhalatio n INHALE 2 PUFFS BY MOUTH EVERY DAY active Not Available Not Available No t Available Ozempic 1 mg/dose (4 mg/3 mL) subcutane ous pen injector INJECT 1 MG SUBCUTAN EOUSLY EVERY WEEK active Not Available Not Available No t Available Mounjaro 7.5 mg/0.5 mL subcutane ous pen injector Inject 7.5 mg every week by subcutan eous route. 07/07 completed Not Available Not Available Not Available Mounjaro 5 mg/0.5 mL subcutane ous pen injector INJECT 5MG UNDER THE SKIN ONCE WEEKLY 02/04 completed Not Available Not Available Not Available Mounjaro 2.5 mg/0.5 mL subcutane ous pen injector INJECT 2.5 MG SUBCUTAN EOUSLY WEEKLY 02/04 completed Not Available Not Available Not Available Ozempic 0.25 mg or 0.5 mg (2 mg/3 mL) subcutane ous pen injector INJECT 0.5 MG SUBCUTAN EOUSLY EVERY WEEK 06/08 completed Not Available Not Available Not Available Zepbound 2.5 mg/0.5 mL subcutane ous pen injector INJECT 2.5 MG SUBCUTAN EOUSLY WEEKLY 02/17 completed Not Available Not Available Not Available Vitals Date Recorded Body height Body mass index (BMI) Body weight Body temperature Heart rate Oxygen saturation Oxygen saturation in Arterial blood by Pulse oximetry Systolic blood pressure Diastolic blood pressure Provider Name and Address Organization Details Last Updated DateTime 4 180.34 cm 48.5 kg/m2 230751. 14 g 98 [degF] 88 /min 94 % 94 % 162 mm[Hg] 96 mm[Hg] Shakila Burns RN [place] [facility] 4 08:26:07 Date Recorded Body height Body mass index (BMI) Body weight Body temperature Heart rate Oxygen saturation Oxygen saturation in Arterial blood by Pulse oximetry Systolic blood pressure Diastolic blood pressure Provider Name and Address Organization Details Last Updated DateTime 4 180.34 cm 47.8 kg/m2 879673. 18 g 97 [degF] 94 /min 92 % 92 % 144 mm[Hg] 90 mm[Hg] Shakila Burns RN [place] [employer] 4 08:16:16 Date Recorded Body height Body mass index (BMI) Body weight Body temperature Oxygen saturation Oxygen saturation in Arterial blood by Pulse oximetry Heart rate Systolic blood pressure Diastolic blood pressure Provider Name and Address Organization Details Last Updated DateTime 5 180.34 cm 47.7 kg/m2 149992. 59 g 96.4 [degF] 92 % 92 % 78 /min 160 mm[Hg] 100 mm[Hg] Sheldon Bro RN [employer] 5 09:31:27 Social History Question Answer Notes LastModified by Organizat ion Details LastModified Time Tobacco Smoking Status Current Some Day Smoker Vicki Schultz MA [facility], [place] [employer] [facility] 07/08/2023 09:48:21 Do You Have An Advance Directive? No [id number] Information not available 06/24/2022 What Is Your Level Of Alcohol Consumption? Moderate [id number].[id number] Information not available 06/24/2022 What Is Your Level Of Caffeine Consumption? Moderate MIGRATION.87914 55050 Information not available 06/24/2022 In The 14 Days Before Symptom Onset, Have You Had Close Contact With A Laboratory-confir med COVID-19 While That Case Was Ill? No MIGRATION.[id number] Information not available 06/24/2022 In The 14 Days Before Symptom Onset, Have You Had Close Contact With A Person Who Is Under Investigation For COVID-19 While That Person Was Ill? 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 REGULAR MIGRATION.07790 51580 Information not available 06/24/2022 Do You Have An Electrostatic Air Filter? No MIGRATION.16340 10715 Information not available 06/24/2022 What Is Your Occupation? [employer] MIGRATION.53157 03696 Information not available 06/24/2022 Have There Been Any Changes To Your Family Or Social Situation? No Information no t available 11/12/2022 What Is The Fluoride Status Of Your Home? Unknown Information not available 11/12/2022 Do You Have A Humidifier? No MIGRATION.71835 51041 Information not available 06/24/2022 Where Do You Live? Other Information not available 07/08/2023 Do You Have Moisture Problems In Your Home? No MIGRATION.27846 [id number] Information not available 06/24/2022 What Was The Date Of Your Most Recent Tobacco Screening? 07/08/2023 Information not available 07/08/2023 Do You Have Any Pets? Yes MIGRATION.90424 63905 Information not available 06/24/2022 What Is Your Relationship Status? MIGRATION.32111 35027 Information not available 06/24/2022 Do You Use Your Seat Belt Or Car Seat Routinely? Yes MIGRATION.27783 [id number] Information not available 06/24/2022 Do You Have Smoke And Carbon Monoxide Detectors In Your Home? Yes MIGRATION.70554 98547 Information not available 06/24/2022 Are You Passively Exposed To Smoke? Yes MIGRATION.98627 15348 Information not available 06/24/2022 How Much Tobacco Do You Smoke? 1 PPD Less Than 1 Pack Daily Information not available 11/12/2022 Do You Feel Stressed (tense, Restless, Nervous, Or Anxious, Or Unable To Sleep At Night)? [id number] MIGRATION.22172 43307 Information not available 06/24/2022 Do You Use Any Illicit Or Recreational Drugs? No MIGRATION.50089 38689 Information not available 06/24/2022 Do You Use Sunscreen Routinely? No MIGRATION.51324 93419 Information not available 06/24/2022 How Many Years Have You Smoked Tobacco? 35 MIGRATION.87075 07104 Information not available 06/24/2022 Have You Recently Traveled Abroad? No MIGRATION.46365 76833 Information not available 06/24/2022 Do You Have Any Dietary Restrictions? No Information not available 07/08/2023 Do You Or Have You Ever Used Any Other Forms Of Tobacco Or Nicotine? No Information not available 11/12/2022 Sex: Unknown Functional Status Question Answer Note LastModified by Organization D etails LastModified Time What is your exercise level? None Information not available 07/08/2023 Mental Status None recorded. Family History Relationship Description Onset Age of this Age Resolved Age Notes LastModified by Organization Details LastModified Time Mother Type 2 diabetes mellitus [id number] Not available 06/24/2022 05:53:11 Father Heart disease bypass surger y [id number] Not available 06/24/2022 05:53:11 Sister Malignant tumor of colon 52 [id number].841 [id number] Not available 06/24/2022 05:53:11 Medical History Condition Response ANXIETY DISORDER Y SLEEP APNEA Y CONSTIPATION Y DEPRESSION (INCLUDING POST ) Y HYPERTENSION Y HIGH CHOLESTEROL / HYPERLIPIDEMIA Y Immunizations Vaccine Type Date Status Note Provider Nam e and Address Organization Details Recorded Time Tdap 06/15/2018 completed Not Available [facility] 11/18/2022 22:19:11 Past Encounters Encounter ID Performer Location Encounter Start Date Encounter Closed Date Diagnosis/Indication Diagnosis SNOMED-CT Code Diagnosis ICD10 Code Diagnosis Note [id number] [facility] [place] [address] [facility] [address] [place] [address] 09/17/2020 00:00:00 09/17/2020 08:57:21 [id number] [facility] [place] [address] [place] [address] 10/02/2020 00:00:00 10/09/2020 07:42:39 [id number] [facility] [place] [address] [place] [address] 10/08/2020 00:00:00 10/08/2020 08:55:14 [id number] [facility] [place] [address] [facility] [address] [place] [address] 12/09/2020 00:00:00 12/09/2020 08:29:23 [id number] [facility] [place] [address] [facility] [address] [place] [address] 01/08/2021 00:00:00 01/08/2021 08:19:33 [id number] [facility] [place] [address] [facility] [address] [place] [address] 06/26/2021 00:00:00 07/23/2021 18:32:50 [id number] [facility] [place] [address] [facility] [address] [place] [address] 2021 00:00:00 12/22/2021 20:37:03 [id number] [facility] [address] [address] 06/03/2022 00:00:00 06/03/2022 12:09:57 [id number] Guanako Anderson MD [facility] [address] [address] 07/03/2022 10:20:54 07/07/2022 08:32:52 Solitary nodule of lung 278599055 R91.1 Mild chron ic obstructive pulmonary disease 379842748 J44.9 Smoker 58373052 F17.218 F17.219 Z87.891 [id number] Guanako Anderson MD [facility] [address] [address] 10/05/2022 09:17:39 10/05/2022 11:34:51 Solitary nodule of lung 971527463 R91.1 Mild chron ic obstructive pulmonary disease 680461399 J44.9 Smoker 51062919 F17.218 F17.219 Z87.891 [id number] CAREMN Chacon-Nae [facility] [address] [address] 11/12/2022 10:54:09 11/12/2022 11:50:20 Essential hypertension 09602285 I10 On Bumex for his swelling, on no other blood pressure medicines Hyperlipidemia 46217608 E78.5 Check labs Prediabetes 612359345 R7 3.03 Check labs Chronic ob structive pulmonary disease 37574163 J44.9 Follows pulmonolog y-Dr. Anderson On Stiolto History of polyp of colon 252298364 Z86.010 Get cscope scheduled Dyspnea on exertion 6084 5006 R06.09 Check labs He needs to get re-establi shed with Cardiology as he is going to need a cardiac workup ER precaution s Fatigue 25090770 R53.83 Check labs Vitamin D deficiency 347 74687 E55.9 Check labs Nodule of lung 643252998 R91.1 following pulm as aboves/p lung biopsy Sleep apnea 72245480 G47 .30 On CPAP Follows palm for compliance Edema of l ower extremity 444197425 R60.0 On Bumex Wearing compressio n stockings Cardiology referral as above Nicotine dependence 5629 4008 F17.200 2 min spent with patient discussing risks, cessation options. Patient encouraged to quit. Obesity 748443478 E66.9 recommend healthy, well balanced mealsfocus on lean meats, fresh vegetables , fresh fruits, whole grainsredu ce fast/proce ssed foods or eating out to no more than 1-2 times per weekaim to get 30 min of exercise most days of the week- walking is a great choicealso recommend resistance training 2-3 times per week [id number] CARMEN Chacon-Nae [facility] Internal [facility] [address] [facility], [facility] [address] [place] [address] 12/15/2022 10:12:21 12/15/2022 11:02:33 Essential hypertension 44045769 I10 On Bumex for his swelling, on no other blood pressure medicines Hyperlipidemia 30065894 E78.5 on rosuvastat inrepeat labs next visit Chronic ob structive pulmonary disease 19246077 J44.9 Follows pulmonolog y-Dr. Kofi Denny History of polyp of colon 967461000 Z86.010 Get cscope scheduled- has been referred- [facility] Dyspnea on exertion 6084 5006 R06.09 BNP WNLHe needs to get re-establi shed with Cardiology as he is going to need a cardiac workup - again encouraged him to get that scheduledE R precaution s Fatigue 31168596 R53.83 starting b12 and vitamin dhas been referred to urology for the low testostero ne Vitamin D deficiency 347 95672 E55.9 On supplement Nodule of lung 617506878 R91.1 following pulm as aboves/p lung biopsy Sleep apnea 28721256 G47 .30 On CPAPFollow s palm for compliance Edema of l ower extremity 142499270 R60.0 On BumexWeari ng compressio n stockings ardiology referral as above Nicotine dependence 5629 4008 F17.200 2 min spent with patient discussing risks, cessation options. Patient encouraged to quit. Obesity 568028710 E66.9 recommend healthy, well balanced mealsfocus on lean meats, fresh vegetables , fresh fruits, whole grainsredu ce fast/proce ssed foods or eating out to no more than 1-2 times per weekaim to get 30 min of exercise most days of the week- walking is a great choicealso recommend resistance training 2-3 times per week Type 2 gisella betes mellitus without complication 586008748 E11.9 on metformin, add mounjaro We discussed GLP-1 agonist mechanism of action and how to mitigate side effects. Patient denies any personal or family history of MEN II, MTC or an personal history of pancreatit is. Patient is aware to call office with any severe abdominal pain or n/v, or any thyroid pain or swelling. We discussed dosing schedule and storage. Patient was shown how to use the medication on a [employer] device. [employer] joão recommende d to track foods. Discussed signs/symp toms of hypo and hyperglyce latoya. Over 45 minutes spent with patient over half spent in counseling Vitamin B1 2 deficiency (non anemic) 52083138 E53.8 On B12 shots Testostero ne level below reference range 298867030 R89.1 Has been referred to Urology [id number] ROSA Chacon [facility] [place] [address] [facility], [address] [place] [address] 02/04/2023 10:28:54 02/04/2023 10:53:56 Cobalamin deficiency 917420607 E53.8 on monthly injections Essential hypertension 83411599 I10 On Bumex for his swelling, on no other blood pressure medicines Hyperlipidemia 45022039 E78.5 on rosuvastat inrepeat labs next visit Chronic ob structive pulmonary disease 76645102 J44.9 Follows pulmonolog y-Dr. Kofi Denny History of polyp of colon 289111549 Z86.010 Get cscope scheduled- has been referred- [facility] Dyspnea on exertion 6084 5006 R06.09 BNP WNLfolldavid chang cardiology - Dr. Sams right and left heart cath scheduled next weekER precaution s Fatigue 25186720 R53.83 on b12 and vitamin dhas been referred to urology for the low testostero ne Vitamin D deficiency 347 42758 E55.9 On supplement Nodule of lung 080782508 R91.1 following pulm as aboves/p lung biopsy Sleep apnea 61141897 G47 .30 On CPAPFollow s palm for compliance Edema of l ower extremity 579500347 R60.0 On BumexWeari ng compressio n stockingsC ardiology referral as above Nicotine dependence 5629 4008 F17.200 2 min spent with patient discussing risks, cessation options. Patient encouraged to quit. Obesity 484875550 E66.9 recommend healthy, well balanced mealsfocus on lean meats, fresh vegetables , fresh fruits, whole grainsredu ce fast/proce ssed foods or eating out to no more than 1-2 times per weekaim to get 30 min of exercise most days of the week- walking is a great choicealso recommend resistance training 2-3 times per week Type 2 gisella betes mellitus without complication 510246617 E11.9 on metformin, increase mounjaro pt is aware of side effects, risks, benefitspt denies any personal or family history of MEN II or MTC, denies and personal history of pancreatit ispt knows to call the office if any severe n/v or abdominal pain Testostero ne level below reference range 898282057 R89.1 Has been referred to Urology [id number] ROSA Lopez [facility] Primary Care [address] [place] [address] 07/01/2023 09:56:23 07/01/2023 10:44:38 Cobalamin deficiency 318314230 E53.8 -chronic, stable with use of meds-b12 injection reordered Prediabetes 977491187 R7 3.03 -chronic, stable-a1c 6.2 11/12-check s blood sugars occ, notes range 85-143-lab s obtained-cheko reed 7.5mg reordered Testostero ne level below reference range 475438723 R89.1 -chronic issue-hx of low test-he is wanting to start testostero ne tx-he has already been cleared by cardiology -referral to urology given Screening for malignant neoplasm of colon 583431311 Z12.11 Mild chron ic obstructive pulmonary disease 470614988 J44.9 -currently being treated per Dr. Anderson for COPD/1 lung nodule-nex t f/u is 07/07 [id number] Guanako Anderson MD [facility] Pulmonolo gy [address], [facility] [address] [place] [address] 07/08/2023 09:30:23 07/09/2023 09:03:19 Solitary nodule of lung 059885335 R91.1 Mild chron ic obstructive pulmonary disease 506051043 J44.9 Smoker 13877192 F17.218 F17.219 Z87.891 Obstructiv e sleep apnea syndrome [id number] G47.33 [id number] SARAH LopezC [facility] Primary Care [facility] [address] [facility] [place] [address] 01/20/2024 08:15:49 01/20/2024 08:51:20 Prediabetes [id number] R73.03 Cobalamin deficiency 190 175614 E53.8 Mild chron ic obstructive pulmonary disease [id number] J44.9 -currently being treated per Dr. Anderson for COPD/1 lung nodule-nex t f/u is 07/07 Vitamin D deficiency 347 04292 E55.9 Mixed anxi ety and depressive disorder [id number] F41.8 Dietary ma nagement surveillance 198176362 Z71.3 unable to get mounjaro d/t E6cdbxdt zepbound 2.5 [id number] ROSA Lopez [facility] Primary Care [facility] [address] [place] [address] 02/18/2024 08:09:43 02/18/2024 08:34:04 Mixed anxiety and depressive disorder [id number] F41.8 increasing sertraline to 50mgencour aged to take med for 2 weeks, if no improvemen t, can take 2 tabs and schedule an appt for f/u Type 2 gisella betes mellitus without complication [id number] E11.9 A1c 7.0continu es to take metformin, but forgets to take it in the eveningenc ouraged to take in the morninggiv en 12 weeks ozempic-sa mpletrial ozempic sent [id number] ROSA Whitten [facility] Primary Care [facility] [address] [employer] [facility] [address] [place] [address] 06/08/2024 09:26:42 06/08/2024 09:57:54 Adult health examination [id number] Z00.00 Discussed medication compliance and routine follow up.Discuss ed healthy diet and routine exercise.R destinywed vaccine records and made recommenda tions as needed.Enc ouraged annual eye and dental exams, as well as twice yearly dental cleanings. Will check screening labs as listed below. Essential hypertension 13020303 I10 160/100 uucenku358 /94 recheckPat ient is noncomplia nt with medication .Discussed DASH diet and routine exercise.W ill check labs as listed below. Hyperlipidemia 86307554 E78.5 Will check labs as listed below. Mild chron ic obstructive pulmonary disease 018204702 J44.9 Will refill Albuterol inhaler and start Prednisone as listed below.Kiaar ent to follow up with new pulmonolog ist at [facility].D iscussed started maintenanc e inhaler.Di scussed worsening symptoms and when to present to the ER. Mixed anxi ety and depressive disorder [id number] F41.8 Will increase Sertraline to 100mg daily, patient will follow up in 3 months, sooner if needed. Nicotine dependence 5629 4008 F17.200 Type 2 gisella betes mellitus without complication 323283018 E11.9 Will check labs as listed below. Vitamin D deficiency 347 85129 E55.9 Vitamin B1 2 deficiency (non anemic) 84095829 E53.8 Body mass index 40+ - severely obese 935223242 Z68.42 Weight: 342 poundsBMI: 47.7Discus sed healthy diet and routine exercise. Testostero ne level below reference range 926519933 R89.1 [id number] ROSA Whitten [facility] Primary Care [facility] [address] [facility] [address] [place] [address] 06/14/2024 11:17:44 06/14/2024 12:03:44 [id number] ROSA Whitten [facility] Primary Care [facility] [address] [facility] [facility] [facility] [place] [address] 06/27/2024 08:40:10 06/27/2024 09:45:49 Health Concerns Section Related Observation LastModified by Organization Detai ls LastModified Time None Recorded Concern Status LastModified by Organization Details LastModified Time None Recorded Advance Directives Directive N: Payers Encounter Date Sequence Insurance Name Policy Number Policy Brown Covered Member ID Brown Member ID Guarantor Name 01/20/2024 1 [employer] ([employer]O) [id number] Pro E Barber [id number] Pro E Barber 02/18/2024 1 [employer] (PPO) [id number] Pro E Barber [id number] Pro E Barber 06/08/2024 1 [employer] (PPO) [id number] Pro E Barber [id number] Pro E Barber 06/14/2024 1 [employer] (PPO) [id number] Pro E Barber [id number] Pro E Barber 06/27/2024 1 [employer] (PPO) [id number] Pro E Barber [id number] Pro E Barber Notes Date Note Type Note Provider Name and Address Organization Details Recorded Time 01/20/2024 text/html pt is here for f/u Shankar Bower ord, CLASSIFICATION AND TREATMENT DIRECTOR-C [address], [place] [address], [place], [address], [employer] 01/20/2024 08:48:28 02/18/2024 text/html pt is here for f/u Shankar F ord, CLASSIFICATION AND TREATMENT DIRECTOR-C [address], [place], [address], [employer] 02/18/2024 08:34:20 06/08/2024 text/html Patient is a 58 year old male that presents to the office for annual wellness. 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 Anderson's office. Patient was following Dr. Anderson for COPD and lung nodule. Patient continues to smoke about 10 cigarettes per day, has been trying to quit but has been unsuccessful. Patient started smoking at age 17, has cut back significantly. Patient reports COPD flare--has been using his albuterol inhaler a lot , patient has not been using his maintenance inhaler because he didn't know he was suppose to . Patient overall is not compliant with his medications or healthcare. evps-fisngxfRYO-xop eredColonoscopy- declinesFlu-decline sCovid-declinesTdap - UTD (05/2018)Antonina eclinesPneumonia-UT D Naida Napoles, CLASSIFICATION AND TREATMENT DIRECTOR-C [address] [facility] [address], [place], [address], [facility] [employer] 06/08/2024 10:21:55
== END 2024-08-05 13:01 | disposition home or self-care (01) ==
PROVIDERS: PCP Nurse Practitioner Family; Visit Provider Nurse Practitioner Family
DX: Z12.2 Encounter for screening for malignant neoplasm of respiratory organs (principal); Z87.891 Personal history of nicotine dependence
CPT/HCPCS: 71271

== ENCOUNTER 2024-12-27 08:14 | Outpatient (CLI) | payer OTHER, SELFPAY ==
--- OUTSIDE RECORDS SUMMARY | 2017-02-03 07:19 | XMS_ITS | Continuity of Care Document ---
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 Name Role Phone Yaya JAMA Meng Unavailable Unavailable Allergies, Adverse Reactions, Alerts Substance Reaction Status Criticality No Known Allergies Active No Inform ation Medications Medication Instructions Dosage Effective Dates (start - stop) Status Comments ibuprofen 600 mg tablet take 1 tablet by oral route 3 times every day with food as needed 600 MG - Active Linzess 72 mcg capsule take 1 capsule by oral route every day on an empty stomach at least 30 minutes before 1st meal of the day as needed for constipation 72 MCG - Active s Advance Directives Directive Yes / No Effective Date File Name No Information Encounters Encounter Description Practice Location Reason(s) For Visit Diagnoses Date Provider Providers Copied on Encounter [place], [address], [place], [place], [id number] , tel: [phone] [facility] No Information Yaya Junior. [address], [place], [id number] , [place]. tel: [phone] [place], [address], [place], [place], [id number] , tel: [phone] [facility] Physical examScreening PSA (prostate specific antigen)SmokerElevat ed BP without diagnosis of hypertensionChronic GERDUmbilical hernia without obstruction and without gangreneConstipation , unspecified constipation type Yaya Vernon. [address], [place], [address] , [place]. tel: [phone] Referring Provider: Vernon Javier, [address] [place], [address] . tel:[phone] Family History Family Member Type Diagnosis Age At Onset Problem (finding) Family history of hyper tension Payers Payer name Insurance type Covered green party ID Authortristen bowens(s) ARTURO BRIDGES [facility] [id number] Social History Type Description Quantity Date Captured Comments Alcohol Use Details Unknown Caffeine Use Details Unknown Tobacco Use Status Smoking Status No Information Sex Male Chief Complaint And Reason For Visit No Information Reason For Referral Reason For Referral No Information History Of Present Illness Encounter Date Complaint History Of Prese nt Illness No Information Functional Status Date Functional Assessmen t No Information Medications Administered Medication Instructions Dosage Effective Dates (start - stop) Status Comments No Drug Therapy Prescribed Instructions Date Instruction Additional Infor mation No Information Assessments Type Assessment Date No Information Patient Care Teams Name Effective Dates (start - stop) Status Members No Information
--- NOTE | ~2024-12-27 | XR_ITS ---
EXAM/ PROCEDURE: XR shoulder LT min 2V - 12/27/2024 8:35 CDT HISTORY: 59 years old Male with M25.512 - Pain in left shoulder COMPARISON: None available TECHNIQUE: Four view(s) FINDINGS/ IMPRESSION: There are no fractures or dislocations.Joint space narrowing, subchondral sclerosis, subchondral cyst formation and osteophyte formation, compatible with moderate to severe osteoarthritis. Reviewed, dictated and finalized at location N.
== END 2024-12-27 08:15 | disposition home or self-care (01) ==
PROVIDERS: PCP Nurse Practitioner Family; Visit Provider Orthopaedic Surgery
DX: M25.512 Pain in left shoulder (principal)
CPT/HCPCS: 73030